=== PATIENT | female | born 1950 | race Caucasian/White ===

== ENCOUNTER 2024-01-23 14:00 | Inpatient (IN) | payer MEDICARE, BC ==
[~2024-01-23] VITALS: Ht 165.1 cm; Wt 112.3 kg
[~2024-01-23 14:00] MED LIST: ALBU8.5H17 INH; ASPI-1071 PO; ATOR20TA66 PO; CARV3.12 PO; CLOP75TA34 PO; CYCL-394 PO; FURO-150 PO; HYDR-3965 PO; LEVO100T PO; LORA-269 PO; LOSA-415 PO; NITR0.4T51 SL; POTA-188 PO; POTA-192 PO
[2024-01-23 14:43] LABS: BASOPHILS % (AUTO) 0.1 % (0-1); EOSINOPHILS % (AUTO) 0.1 % (0-6); HEMATOCRIT 43.3 % (35.0-45.0); HEMOGLOBIN 14.4 g/dl (12.0-16.0); LYMPHOCYTES # (AUTO) 1.5 X10'3 (1.1-4.8); LYMPHOCYTES % (AUTO) 6.1 % (21-51); MEAN CORPUSCULAR HEMOGLOBIN 29.3 PG (27.0-31.0); MEAN CORPUSCULAR HGB CONC 33.2 g/dL (33.0-36.5); MEAN CORPUSCULAR VOLUME 88.1 FL (78-98); MEAN PLATELET VOLUME 10.3 FL (7.4-10.4); MONOCYTES # (AUTO) 1.5 X10'3 (0-0.9); MONOCYTES % (AUTO) 6.1 % (2-12); NEUTROPHILS # (AUTO) 21.5 X10'3 (1.8-7.7); NEUTROPHILS % (AUTO) 87.6 % (42-75); PLATELET COUNT 273 X10'3 (140-440); RED BLOOD COUNT 4.92 X10'6 (4.20-5.60); RED CELL DISTRIBUTION WIDTH 13.8 % (11.5-14.5); WHITE BLOOD COUNT 24.5 X10'3 (4.5-11.0)
[2024-01-23 15:04] LABS: ALANINE AMINOTRANSFERASE 23 U/L (12-78); ALBUMIN 3.5 G/DL (3.4-5.0); ALBUMIN/GLOBULIN RATIO 0.8 (1.1-1.5); ALKALINE PHOSPHATASE 98 IU/L (46-116); ANION GAP 10 (8-16); ASPARTATE AMINO TRANSFERASE 11 U/L (10-37); BILIRUBIN,TOTAL 0.5 MG/DL (0.1-1.0); BLOOD UREA NITROGEN 21 MG/DL (7-18); BUN/CREATININE RATIO 24.7 (10.0-20.0); CALCIUM 9.4 MG/DL (8.5-10.1); CHLORIDE 100 MMOL/L (99-107); CREATININE 0.85 MG/DL (0.40-0.90); GLUCOSE 148 MG/DL (70-104); POTASSIUM 4.1 MMOL/L (3.5-5.1); SODIUM 138 MMOL/L (135-145); TOTAL CARBON DIOXIDE 28.5 MMOL/L (24-32); eCRCL 54 ML/MIN; eGFR 66 ML/MIN
[2024-01-23 15:10] LABS: LIPASE 9 U/L (16-77); PRO BRAIN NATRIURETIC PEPTIDE 1109 PG/ML (0-125)
[2024-01-23] MEDS ORDERED: iohexol 300mg/ml 100ml inj. ONE (16:26)
[2024-01-23] MEDS: ondansetron/PF 4mg/2ml inj IV ONE (17:05)
[2024-01-23] MEDS: piperacillin/tazo 3.375gm/50ml 50 ML IV ONE (17:06)
[2024-01-23] MEDS: HYDROmorphone inj. 0.5 MG/0.5 ML DISP.SYRIN IV ONE ×2 (17:06→17:57)
[2024-01-23] MEDS ORDERED: magnesium 2GM in 50ml NS 50 ML IV PRN (17:10)
[2024-01-23] MEDS ORDERED: acetaminophen 325mg tablet PO PRN (17:10)
[2024-01-23] MEDS ORDERED: HYDROcodone/acetaminophen 10/325mg tab PO PRN (17:10)
[2024-01-23] MEDS ORDERED: HYDROcodone/acetaminophen 5mg/325mg tablet PO PRN (17:10)
[2024-01-23] MEDS ORDERED: magnesium Cl slow-release 64mg tablet PO PRN (17:10)
[2024-01-23] MEDS ORDERED: potassium Cl 20 mEq SR tablet PO PRN ×2 (17:10)
[2024-01-23] MEDS ORDERED: magnesium 4gm in 100ml NS 100 ML IV PRN (17:10)
[2024-01-23] MEDS ORDERED: morphine 2 MG/ML inj. syringe IV PRN (17:10)
[2024-01-23] MEDS ORDERED: potassium Cl 40MEQ/1/2NS 520ml 520 ML IV PRN (17:10)
[2024-01-23] MEDS: normal saline 1000ml 1,000 ML IV SCH (17:57)
[2024-01-23 18:55] VITALS: BP 118/49; PULSE 106; RESP 18; TEMP 98.3; O2SAT 95
[2024-01-23 19:15] VITALS: RESP 18; O2SAT 95
[2024-01-23] MEDS: morphine 2 MG/ML inj. syringe IV PRN (20:01)
[2024-01-23] MEDS: ondansetron/PF 4mg/2ml inj IV PRN (20:02)
[2024-01-23 22:00] VITALS: BP 114/48; PULSE 97; RESP 17; TEMP 98.2; O2SAT 93
[2024-01-23 22:53] VITALS: RESP 17; O2SAT 95
[2024-01-23] MEDS: piperacillin/tazo 3.375gm/50ml 50 ML IV SCH (23:37)
[2024-01-24] VITALS (31 sets, daily range): BP systolic 104–189; BP diastolic 50–89; PULSE 68–102; RESP 16–25; TEMP 97.9–98.1; O2SAT 92–97
[2024-01-24] MEDS: temazepam 15mg capsule PO PRN (00:12)
[2024-01-24] MEDS: cyclobenzaprine 10mg tablet PO ONE (03:01)
[2024-01-24] MEDS: albuterol 2.5 MG/3 ML nebule NEB PRN (04:29)
[2024-01-24 06:38] LABS: BASOPHILS % (AUTO) 0.1 % (0-1); EOSINOPHILS % (AUTO) 0 % (0-6); LYMPHOCYTES # (AUTO) 1.6 X10'3 (1.1-4.8); LYMPHOCYTES % (AUTO) 5.5 % (21-51); MEAN CORPUSCULAR HEMOGLOBIN 29.4 PG (27.0-31.0); MEAN CORPUSCULAR HGB CONC 33.2 g/dL (33.0-36.5); MEAN CORPUSCULAR VOLUME 88.5 FL (78-98); MEAN PLATELET VOLUME 10.3 FL (7.4-10.4); MONOCYTES # (AUTO) 2.3 X10'3 (0-0.9); MONOCYTES % (AUTO) 8.2 % (2-12); NEUTROPHILS # (AUTO) 24.5 X10'3 (1.8-7.7); NEUTROPHILS % (AUTO) 86.2 % (42-75); PLATELET COUNT 215 X10'3 (140-440); RED BLOOD COUNT 4.41 X10'6 (4.20-5.60); RED CELL DISTRIBUTION WIDTH 13.6 % (11.5-14.5)
[2024-01-24 06:46] LABS: WHITE BLOOD COUNT 28.5 X10'3 (4.5-11.0)
[2024-01-24] MEDS: INDOCYANINE GREEN 25 MG/10 ML VIAL IV ONE (06:47)
[2024-01-24 06:55] LABS: ALANINE AMINOTRANSFERASE 20 U/L (12-78); ALBUMIN 2.7 G/DL (3.4-5.0); ALBUMIN/GLOBULIN RATIO 0.6 (1.1-1.5); ALKALINE PHOSPHATASE 103 IU/L (46-116); ANION GAP 10 (8-16); ASPARTATE AMINO TRANSFERASE 14 U/L (10-37); BILIRUBIN,TOTAL 0.6 MG/DL (0.1-1.0); BLOOD UREA NITROGEN 20 MG/DL (7-18); BUN/CREATININE RATIO 20.4 (10.0-20.0); CALCIUM 8.5 MG/DL (8.5-10.1); CHLORIDE 102 MMOL/L (99-107); CREATININE 0.98 MG/DL (0.40-0.90); GLUCOSE 146 MG/DL (70-104); SODIUM 138 MMOL/L (135-145); TOTAL CARBON DIOXIDE 26.1 MMOL/L (24-32); TOTAL PROTEIN 7.1 G/DL (6.4-8.2); eCRCL 47 ML/MIN; eGFR 56 ML/MIN
[2024-01-24 07:11] LABS: TOTAL CELLS COUNTED 100
[2024-01-24 07:12] LABS: PLATELET ESTIMATE NORMAL
[2024-01-24] MEDS ORDERED: sevoflurane 250ml liquid IH ONE (08:00)
[2024-01-24] MEDS: nicotine 14mg patch - 24hr TD SCH (08:00)
[2024-01-24] MEDS ORDERED: midazolam 1 mg/ML 2ml injection ONE (08:08)
[2024-01-24] MEDS ORDERED: fentaNYL/PF 50MCG/1 ML 2ML syringe ONE (08:08)
[2024-01-24] MEDS ORDERED: rocuronium 10mg/ml inj IV ONE ×2 (08:15→09:18)
[2024-01-24] MEDS ORDERED: propofol inj 20 ML IV ONE (08:15)
[2024-01-24] MEDS ORDERED: meperidine/PF 25mg/ml syringe IV PRN ×3 (08:55)
[2024-01-24] MEDS ORDERED: morphine 2 MG/ML inj. syringe IV PRN (08:55)
[2024-01-24] MEDS ORDERED: enalaprilat dihydrate 2.5mg/2ml vial IV PRN (08:55)
[2024-01-24] MEDS ORDERED: proCHLORperazine 10 MG/2 ml inj IV PRN (08:55)
[2024-01-24] MEDS ORDERED: morphine 4 MG/ML inj SYRINge IV PRN (08:55)
[2024-01-24] MEDS ORDERED: labetalol 20mg/4ml (5mg/ml) syringe IV PRN (08:55)
[2024-01-24] MEDS: ringers solution, lacted 1,000 ML IV SCH (08:55)
[2024-01-24] MEDS: BUPIVAcaine/PF 2.5mg/ml (0.25%) 10ml vial ONE (09:17)
[2024-01-24] MEDS: LIDOcaine 1% 30ml preserv. free vial ONE (09:17)
[2024-01-24] MEDS ORDERED: acetaminophen 1,000mg/100ml IV 100 ML IV ONE (09:18)
[2024-01-24] MEDS ORDERED: meperidine/PF 25mg/ml syringe ONE (09:41)
[2024-01-24] MEDS ORDERED: ondansetron/PF 4mg/2ml inj ONE (09:42)
[2024-01-24] MEDS ORDERED: LIDOcaine 2% (20mg/ml) 5ml vial ONE (10:18)
[2024-01-24] MEDS ORDERED: naloxone 0.4 mg/ml inj IV PRN (10:25)
[2024-01-24] MEDS ORDERED: sugammadex 200mg/2ml injection IV ONE (10:28)
[2024-01-24] MEDS: ipratropium/albuterol 3ml nebule NEB PRN (11:19)
[2024-01-24] MEDS: ondansetron/PF 4mg/2ml inj IV PRN (11:23)
[2024-01-24] MEDS: oxyCODONE/APAP 5-325mg tablet PO PRN (11:34)
[2024-01-24] MEDS: oxyCODONE/APAP 10/325mg tablet PO PRN (15:49)
[2024-01-24] MEDS ORDERED: oxyCODONE/APAP 5-325mg tablet PO PRN (16:10)
[2024-01-24] MEDS ORDERED: non-formulary drug (Albuterol Sulfate (Proair Hfa) 2 PUFFS) INH PRN (16:15)
[2024-01-24] MEDS: furosemide 20 MG/2 ML vial IV ONE (16:19)
[2024-01-24] MEDS: potassium chloride 10mEq ER tablet PO SCH (19:53)
[2024-01-24] MEDS: carVEDilol 3.125mg tablet PO SCH (19:53)
[2024-01-24] MEDS: atorvastatin 20mg tablet PO SCH (21:17)
[2024-01-25] VITALS (10 sets, daily range): BP systolic 97–126; BP diastolic 56–66; PULSE 64–85; RESP 8–20; TEMP 97.6–98.7; O2SAT 91–94
[2024-01-25] MEDS: acetaminophen 325mg tablet PO PRN (02:22)
[2024-01-25] MEDS: aspirin 81mg, enteric-coated 1 TAB TABLET.DR PO SCH (07:14)
[2024-01-25] MEDS: losartan 25mg tablet PO SCH (07:14)
[2024-01-25] MEDS: furosemide 20MG tablet PO SCH (07:15)
[2024-01-25] MEDS: clopidogrel 75mg tablet PO SCH (07:16)
[2024-01-25] MEDS: levoTHYROXINE 100mcg tablet PO SCH (07:16)
[2024-01-25 07:54] LABS: BASOPHILS % (AUTO) 0 % (0-1); EOSINOPHILS % (AUTO) 0 % (0-6); HEMATOCRIT 32.4 % (35.0-45.0); HEMOGLOBIN 10.7 g/dl (12.0-16.0); LYMPHOCYTES # (AUTO) 1.8 X10'3 (1.1-4.8); LYMPHOCYTES % (AUTO) 7.3 % (21-51); MEAN CORPUSCULAR HEMOGLOBIN 29.4 PG (27.0-31.0); MEAN CORPUSCULAR HGB CONC 33.2 g/dL (33.0-36.5); MEAN CORPUSCULAR VOLUME 88.7 FL (78-98); MEAN PLATELET VOLUME 10.4 FL (7.4-10.4); MONOCYTES # (AUTO) 1.5 X10'3 (0-0.9); MONOCYTES % (AUTO) 6.3 % (2-12); NEUTROPHILS # (AUTO) 20.9 X10'3 (1.8-7.7); NEUTROPHILS % (AUTO) 86.4 % (42-75); PLATELET COUNT 176 X10'3 (140-440); RED BLOOD COUNT 3.65 X10'6 (4.20-5.60); RED CELL DISTRIBUTION WIDTH 13.6 % (11.5-14.5); WHITE BLOOD COUNT 24.2 X10'3 (4.5-11.0)
[2024-01-25] MEDS: heparin, porcine 5000 units/ml vial SQ SCH (08:00)
[2024-01-25 08:11] LABS: ALANINE AMINOTRANSFERASE 37 U/L (12-78); ALBUMIN/GLOBULIN RATIO 0.4 (1.1-1.5); ALKALINE PHOSPHATASE 81 IU/L (46-116); ANION GAP 6 (8-16); ASPARTATE AMINO TRANSFERASE 26 U/L (10-37); BILIRUBIN,TOTAL 0.4 MG/DL (0.1-1.0); BLOOD UREA NITROGEN 21 MG/DL (7-18); BUN/CREATININE RATIO 23.9 (10.0-20.0); CALCIUM 7.9 MG/DL (8.5-10.1); CHLORIDE 100 MMOL/L (99-107); CREATININE 0.88 MG/DL (0.40-0.90); GLUCOSE 117 MG/DL (70-104); POTASSIUM 4.1 MMOL/L (3.5-5.1); SODIUM 134 MMOL/L (135-145); TOTAL CARBON DIOXIDE 27.7 MMOL/L (24-32); TOTAL PROTEIN 6.6 G/DL (6.4-8.2); eCRCL 52 ML/MIN; eGFR 63 ML/MIN
[2024-01-25] MEDS: magnesium hydroxide 30ml (MOM) UD suspension PO ONE (11:19)
[2024-01-25 13:55] LABS: BASOPHILS % (AUTO) 0 % (0-1); EOSINOPHILS % (AUTO) 0 % (0-6); HEMATOCRIT 32.5 % (35.0-45.0); HEMOGLOBIN 10.7 g/dl (12.0-16.0); LYMPHOCYTES # (AUTO) 1.9 X10'3 (1.1-4.8); LYMPHOCYTES % (AUTO) 8.2 % (21-51); MEAN CORPUSCULAR HEMOGLOBIN 29.1 PG (27.0-31.0); MEAN CORPUSCULAR HGB CONC 32.9 g/dL (33.0-36.5); MEAN CORPUSCULAR VOLUME 88.6 FL (78-98); MEAN PLATELET VOLUME 10.3 FL (7.4-10.4); MONOCYTES # (AUTO) 1.4 X10'3 (0-0.9); MONOCYTES % (AUTO) 5.9 % (2-12); NEUTROPHILS # (AUTO) 19.8 X10'3 (1.8-7.7); NEUTROPHILS % (AUTO) 85.9 % (42-75); PLATELET COUNT 180 X10'3 (140-440); RED BLOOD COUNT 3.68 X10'6 (4.20-5.60); RED CELL DISTRIBUTION WIDTH 13.3 % (11.5-14.5); WHITE BLOOD COUNT 23.1 X10'3 (4.5-11.0)
[2024-01-26 06:00] VITALS: BP 93/48; PULSE 85; RESP 16; TEMP 97; O2SAT 93
[2024-01-26 06:40] LABS: ALANINE AMINOTRANSFERASE 56 U/L (12-78); ALBUMIN 1.9 G/DL (3.4-5.0); ALBUMIN/GLOBULIN RATIO 0.5 (1.1-1.5); ALKALINE PHOSPHATASE 137 IU/L (46-116); ANION GAP 3 (8-16); ASPARTATE AMINO TRANSFERASE 39 U/L (10-37); BILIRUBIN,TOTAL 0.4 MG/DL (0.1-1.0); BLOOD UREA NITROGEN 20 MG/DL (7-18); BUN/CREATININE RATIO 24.4 (10.0-20.0); CALCIUM 7.8 MG/DL (8.5-10.1); CHLORIDE 103 MMOL/L (99-107); CREATININE 0.82 MG/DL (0.40-0.90); GLUCOSE 102 MG/DL (70-104); POTASSIUM 3.7 MMOL/L (3.5-5.1); SODIUM 134 MMOL/L (135-145); TOTAL CARBON DIOXIDE 27.6 MMOL/L (24-32); TOTAL PROTEIN 5.9 G/DL (6.4-8.2); eCRCL 56 ML/MIN; eGFR 69 ML/MIN
[2024-01-26 06:58] LABS: BASOPHILS % (AUTO) 0.1 % (0-1); EOSINOPHILS # (AUTO) 0.1 X10'3 (0-0.9); EOSINOPHILS % (AUTO) 0.8 % (0-6); HEMATOCRIT 31.8 % (35.0-45.0); HEMOGLOBIN 10.5 g/dl (12.0-16.0); LYMPHOCYTES # (AUTO) 2.4 X10'3 (1.1-4.8); MEAN CORPUSCULAR HEMOGLOBIN 29.4 PG (27.0-31.0); MEAN CORPUSCULAR VOLUME 88.9 FL (78-98); MEAN PLATELET VOLUME 10.8 FL (7.4-10.4); MONOCYTES # (AUTO) 0.7 X10'3 (0-0.9); NEUTROPHILS # (AUTO) 10.9 X10'3 (1.8-7.7); NEUTROPHILS % (AUTO) 77.1 % (42-75); PLATELET COUNT 182 X10'3 (140-440); RED BLOOD COUNT 3.57 X10'6 (4.20-5.60); RED CELL DISTRIBUTION WIDTH 13.5 % (11.5-14.5); WHITE BLOOD COUNT 14.1 X10'3 (4.5-11.0)
[2024-01-26 10:00] VITALS: BP 110/55; PULSE 80; RESP 14; TEMP 97.6; O2SAT 93
[2024-01-26 10:01] LABS: THYROID STIMULATING HORMONE 3.44 ulU/ml (0.34-4.50)
[2024-01-26 10:46] VITALS: PULSE 82; RESP 18; O2SAT 90
[2024-01-26 10:53] VITALS: PULSE 80; RESP 18
[2024-01-26] MEDS ORDERED: CIPR-259 PO (11:07)
[2024-01-26] MEDS ORDERED: METR-159 PO (11:07)
== END 2024-01-26 14:23 | disposition home or self-care (01) | DRG 418 ==
LOC: ER 14:00 → ORTHO 4S 17:15
PROVIDERS: ADMIT Internal Medicine; ATTEND Internal Medicine
PROC: BW211ZZ Computerized Tomography (CT Scan) of Abdomen and Pelvis using Low Osmolar Contrast (ICD-10-PCS; 2024-01-23)
PROC: 8E0W4CZ Robotic Assisted Procedure of Trunk Region, Percutaneous Endoscopic Approach (ICD-10-PCS; 2024-01-24)
PROC: BF131ZZ Fluoroscopy of Gallbladder and Bile Ducts using Low Osmolar Contrast (ICD-10-PCS; 2024-01-24)
PROC: 0FT44ZZ Resection of Gallbladder, Percutaneous Endoscopic Approach (ICD-10-PCS; principal; 2024-01-24 08:00)
DX: K80.01 Calculus of gallbladder with acute cholecystitis with obstruction (principal); J96.11 Chronic respiratory failure with hypoxia; Z68.41 Body mass index [BMI] 40.0-44.9, adult; R65.10 Systemic inflammatory response syndrome (SIRS) of non-infectious origin without acute organ dysfunction; K82.A1 Gangrene of gallbladder in cholecystitis; E66.01 Morbid (severe) obesity due to excess calories; I25.10 Atherosclerotic heart disease of native coronary artery without angina pectoris; D64.9 Anemia, unspecified; J44.9 Chronic obstructive pulmonary disease, unspecified; I11.0 Hypertensive heart disease with heart failure; I48.0 Paroxysmal atrial fibrillation; I50.9 Heart failure, unspecified; F17.210 Nicotine dependence, cigarettes, uncomplicated; K82.8 Other specified diseases of gallbladder; G89.29 Other chronic pain; I95.9 Hypotension, unspecified; M41.9 Scoliosis, unspecified; Z95.5 Presence of coronary angioplasty implant and graft; Z79.899 Other long term (current) drug therapy; I25.2 Old myocardial infarction; Z98.891 History of uterine scar from previous surgery; Z98.51 Tubal ligation status; Z79.02 Long term (current) use of antithrombotics/antiplatelets; Z79.82 Long term (current) use of aspirin; Z71.6 Tobacco abuse counseling
CPT/HCPCS: 36415; 71045; 74177; 76700; 80053; 82948; 83605; 83690; 83735; 83880; 84145; 84443; 84484; 85007; 85025; 87040; 87081; 88304; 88341; 88342; 93005; 93306; 94640; 94760; 97116; 97161; 97530; 99285; A4215; A4615; A4618; A6258; A6449; A7000; G0378; J0131; J1100; J1170; J1644; J1940; J2175; J2250; J2270; J2405; J2543; J2704; J2710; J3010; J3490; J7030; J7120; Q9967